=== PATIENT | male | born 1960 | race Caucasian/White ===

== ENCOUNTER 2025-01-20 10:12 | Emergency (ER) | payer BC ==
[~2025-01-20] VITALS: Ht 182.9 cm; Wt 94.5 kg
[~2025-01-20 10:12] MED LIST: ASPIR LOW81 MG PO; BUPROPION HCL150 M2 PO; CITALOPRAM40 MG PO; COZAAR 50MG50 MG/TAB PEG; FENOFIBRATE145 MG PO; LEVEMIR100 U/M1 SC; MELOXICAM15 MG PO; METFORMIN HYDR500 MG PO; SIMVASTATIN20 M1 PO; SYNTHROID0.1 MG/TAB PO; VITAMIN D32000 I1 PO
[2025-01-20 10:35] VITALS: BP 133/73
[2025-01-20] MEDS ORDERED: JARDIANCE25 MG PO (10:41)
[2025-01-20] MEDS ORDERED: XARELTO20 MG PO (10:42)
[2025-01-20] MEDS ORDERED: METOPROLOL SUCC50 M1 PO (10:43)
[2025-01-20] MEDS ORDERED: GLUCOPHAGE PO (10:44)
[2025-01-20] MEDS ORDERED: FLOMAX0.4 MG PO (10:45)
[2025-01-20] MEDS ORDERED: VITAMIN D21250 MCG PO (10:46)
[2025-01-20] MEDS ORDERED: OLMESARTAN MEDO20 MG PO (10:47)
[2025-01-20] MEDS ORDERED: OZEMPIC2 MG/0.75 SQ (10:48)
[2025-01-20] MEDS ORDERED: INSULIN GL100 UNIT/2 SQ (10:48)
[2025-01-20] MEDS ORDERED: DOXYCYCLINE HYCLATE (10:49)
[2025-01-20 11:30] LABS: PH-URINE 5.5 (5.0 - 8.0); URINE APPEARANCE CLEAR (CLEAR); URINE BILIRUBIN NEGATIVE (NEGATIVE); URINE BLOOD NEGATIVE (NEGATIVE); URINE COLOR YELLOW (YELLOW); URINE GLUCOSE 2+ (NEGATIVE); URINE KETONE NEGATIVE (NEGATIVE); URINE LEUKOCYTE ESTERASE NEGATIVE (NEGATIVE); URINE NITRATE NEGATIVE (NEGATIVE); URINE PROTEIN(semi-quant) NEGATIVE (NEGATIVE); URINE WBC 0-1 /hpf (0-3)
== END 2025-01-20 12:34 | disposition home or self-care (01) ==
LOC: ED 10:12
PROVIDERS: Physician Assistant
DX: B34.9 Viral infection, unspecified (principal); R53.83 Other fatigue; R68.83 Chills (without fever); R21 Rash and other nonspecific skin eruption